=== PATIENT | male | born 1945 | race Caucasian/White ===

== ENCOUNTER 2019-03-25 16:09 | Emergency (ER) | payer SELFPAY ==
--- NOTE | 2019-03-25 17:26 | EDM.PDOC ---
ED HPI GENERAL MEDICAL PROBLEM - General Chief Complaint: Laceration Stated Complaint: LACERATION ON FOREHEAD Time Seen by Provider: 03/25/19 16:58 Source of Information: Reports: Patient History Limitations: Reports: No Limitations - History of Present Illness INITIAL COMMENTS - FREE TEXT/NARRATIVE: Hit his head yesterday; he held pressure and applied a bandage; denies LOC; coming in for a "wound check". Duration: Day(s): (1) Location: Reports: Head Severity: Mild Improves with: Reports: None Worsens with: Reports: None - Related Data Allergies Allergy/AdvReac Type Severity Reaction Status Date / Time No Known Allergies Allergy Verified 03/25/19 17:17 Home Meds: Home Meds atorvaSTATin [Lipitor] 03/25/19 [History] Past Medical History Cardiovascular History: Reports: High Cholesterol Genitourinary History: Reports: BPH Social & Family History - Tobacco Use Smoking Status *Q: Never Smoker ED ROS GENERAL - Review of Systems Review Of Systems: ROS reveals no pertinent complaints other than HPI. ED EXAM, SKIN/RASH Exam: See Below Exam Limited By: No Limitations General Appearance: Alert, WD/WN, No Apparent Distress Eye Exam: Bilateral Eye: EOMI, PERRL Head: Normocephalic, Other (forehead, left side; small laceration; healing; linear; no bleeding) Neck: Normal Inspection, Supple, Non-Tender, Full Range of Motion Respiratory/Chest: No Respiratory Distress, Lungs Clear Cardiovascular: Regular Rate, Rhythm Extremities: Normal Inspection, Normal Range of Motion Neurological: Alert, Oriented, CN II-XII Intact, Normal Cognition, Normal Gait, No Motor/Sensory Deficits Psychiatric: Normal Affect, Normal Mood Skin: Warm, Dry, Intact Course - Vital Signs Last Recorded V/S: Last Vital Signs Temp 97.7 F 03/25/19 17:24 Pulse 69 03/25/19 17:24 Resp 14 03/25/19 17:24 BP 148/74 H 03/25/19 17:24 Pulse Ox 98 03/25/19 17:24 - Re-Assessments/Exams Free Text/Narrative Re-Assessment/Exam: 03/25/19 18:19 Cleansed the wound, applied 3 steri strips and bandage; tolerated well. Departure - Departure Time of Disposition: 17:35 Disposition: Home, Self-Care 01 Condition: Good Clinical Impression: Laceration of forehead without complication Qualifiers: Encounter type: initial encounter Qualified Code(s): S01.81XA - Laceration without foreign body of other part of head, initial encounter - Discharge Information *PRESCRIPTION DRUG MONITORING PROGRAM REVIEWED*: Not Applicable *COPY OF PRESCRIPTION DRUG MONITORING REPORT IN PATIENT SARAI: Not Applicable Instructions: Wound Care, Adult, Nonsutured Laceration Care Referrals: PCP,None [Primary Care Provider] - Forms: ED Department Discharge Additional Instructions: Keep area clean and dry Allow the steri strips to fall off. If you are concerned for infection, please follow up with ER or your primary care. For pain, use Tylenol 500 mg to 1 G every 8 hours. Call with questions. - Problem List & Annotations (1) Laceration of forehead without complication SNOMED Code(s): 742558671 Code(s): S01.81XA - LACERATION W/O FOREIGN BODY OF OTH PART OF HEAD, INIT ENCNTR Status: Acute Priority: Low Qualifiers: Encounter type: initial encounter Qualified Code(s): S01.81XA - Laceration without foreign body of other part of head, initial encounter - Problem List Review Problem List Initiated/Reviewed/Updated: Yes
== END 2019-03-25 17:44 | disposition home or self-care (01) ==
LOC: JP.ED 16:09
DX: S01.81XA Laceration without foreign body of other part of head, initial encounter (principal); W22.8XXA Striking against or struck by other objects, initial encounter
CPT/HCPCS: 99282